=== PATIENT | female | born 1965 | race Caucasian/White ===

== ENCOUNTER 2024-02-04 08:10 | Day surgery (SDC) | payer OTHER, SELFPAY ==
--- NOTE | 2024-02-04 08:21 | US_ITS ---
[address] [address] Patient Name: ERVIN GONZALES MRN: [id number] date: 1965 Sex: F Assigned Patient Location: [place] Current Patient Location: Accession/Order Number: [id number] Exam Date: 02/04/2024 08:22 Report Date: 02/04/2024 10:17 At the request of: LAWRENCE HARPER Procedure: US biopsy thyroid EXAMINATION: US biopsy thyroid, US biopsy FNA add lesion HISTORY: Thyroid Nodule COMPARISON: No relevant comparison available. TECHNIQUE: After obtaining informed consent, an ultrasound-guided biopsy was performed in the usual sterile manner. FINDINGS: Nodule #1: IMAGING: Ultrasound BIOPSY NEEDLE: 25-gauge 2 inch SPECIMEN TYPE, #, LOCATION: 3 fine-needle aspirates, right thyroid isthmus hypoechogenic nodule MEDICATION: 2 cc 1% buffered lidocaine COMPLICATIONS: None. LABORATORY: Pending pathology and molecular study OTHER: Negative. Nodule #2: IMAGING: Ultrasound BIOPSY NEEDLE: 25-gauge 2 inch SPECIMEN TYPE, #, LOCATION: 3 fine-needle aspirates, right thyroid 2.1 cm hypoechogenic nodule MEDICATION: 2 cc 1% buffered lidocaine COMPLICATIONS: None. LABORATORY: Pending pathology and molecular study OTHER: Negative. US/US biopsy thyroid IMPRESSION: Uneventful ultrasound guided biopsy of 2 separate thyroid nodules. The patient was instructed to obtain follow up care and biopsy results from the referring physician. Electronically authenticated by: GILBERTO GAYLE Date: 02/04/2024 10:17
--- NOTE | 2024-02-04 08:27 | US_ITS ---
The [address] [address] Patient Name: ERVIN GONZALES MRN: [id number] date: 1965 Sex: F Assigned Patient Location: [place] Current Patient Location: Accession/Order Number: [id number] Exam Date: 02/04/2024 08:28 Report Date: 02/04/2024 10:17 At the request of: LAWRENCE HARPER Procedure: US biopsy FNA add lesion EXAMINATION: US biopsy thyroid, US biopsy FNA add lesion HISTORY: Thyroid Nodule COMPARISON: No relevant comparison available. TECHNIQUE: After obtaining informed consent, an ultrasound-guided biopsy was performed in the usual sterile manner. FINDINGS: Nodule #1: IMAGING: Ultrasound BIOPSY NEEDLE: 25-gauge 2 inch SPECIMEN TYPE, #, LOCATION: 3 fine-needle aspirates, right thyroid isthmus hypoechogenic nodule MEDICATION: 2 cc 1% buffered lidocaine COMPLICATIONS: None. LABORATORY: Pending pathology and molecular study OTHER: Negative. Nodule #2: IMAGING: Ultrasound BIOPSY NEEDLE: 25-gauge 2 inch SPECIMEN TYPE, #, LOCATION: 3 fine-needle aspirates, right thyroid 2.1 cm hypoechogenic nodule MEDICATION: 2 cc 1% buffered lidocaine COMPLICATIONS: None. LABORATORY: Pending pathology and molecular study OTHER: Negative. US/US biopsy FNA add lesion IMPRESSION: Uneventful ultrasound guided biopsy of 2 separate thyroid nodules. The patient was instructed to obtain follow up care and biopsy results from the referring physician. Electronically authenticated by: GILBERTO GAYLE Date: 02/04/2024 10:17
[2024-02-04 08:30] VITALS: BP 111/64; PULSE 90; O2SAT 93
[2024-02-04] MEDS: LIDOCAINE HCL 10 ML, SODIUM BICARBONATE 1 MEQ INJ (09:20)
--- NOTE | 2024-02-04 10:06 | SUR.PREOP ---
01/29/24 Per Antonio pt instructed on procedure, date, time, and prep.
== END 2024-02-04 09:40 | disposition home or self-care (01) ==
PROVIDERS: Radiology Diagnostic Radiology; Visit Provider Otolaryngology
DX: E04.2 Nontoxic multinodular goiter (principal)
CPT/HCPCS: 10005; 10006; 88173